=== PATIENT | female | born 1995 | race African-American/Black ===

== ENCOUNTER 2018-11-30 22:47 | Emergency (ER) | payer OTHER ==
[~2018-11-30] VITALS: Ht 160 cm; Wt 54.5 kg
[2018-11-30 23:55] LABS: BASO % 0.3 % (0.0-1.0); EOS # 0.1 10^3/uL (0.0-0.50); EOS % 2.1 % (0.0-3.0); HEMATOCRIT 35.4 % (36.0-47.0); HEMOGLOBIN 11.2 g/dl (12.0-15.5); LYMPH # 2.4 10^3/uL (1.5-6.5); LYMPH % 37.6 % (24.0-44.0); MEAN CORPUSCULAR HEMOGLOBIN 24.3 pg (27.0-33.0); MEAN CORPUSCULAR HGB CONC 31.6 g/dl (32.0-36.5); MEAN CORPUSCULAR VOLUME 76.8 fl (80.0-96.0); MONO # 0.5 10^3/uL (0.0-0.8); MONO % 8.1 % (0.0-5.0); NEUTROPHILS # 3.2 10^3/uL (1.8-7.7); NEUTROPHILS % 51.6 % (36.0-66.0); PLATELET COUNT, AUTOMATED 301 10^3/uL (150-450); RED BLOOD COUNT 4.61 10^6/uL (4.00-5.40); WHITE BLOOD COUNT 6.3 10^3/uL (4.0-10.0)
[2018-12-01] MEDS ORDERED: LIDOCAINE VISCOUS 2% SOLN 15ML UDC SS ONE
[2018-12-01 00:26] LABS: FREE T4 1.13 NG/DL (0.76-1.46)
[2018-12-01 00:49] LABS: MONO REFLEX EBV COMP NEGATIVE (NEGATIVE)
[2018-12-01] MEDS ORDERED: LIDO1SOL8 PO (01:03)
[2018-12-01 01:07] VITALS: BP 116/70
[2018-12-05 00:06] LABS: EBV VIRAL CAPSID AG IgG >600.0 U/mL (0.0-17.9); EBV VIRAL CAPSID AG IgM <36.0 U/mL (0.0-35.9)
== END 2018-12-01 01:09 | disposition home or self-care (01) ==
LOC: M ED 22:47
DX: J02.9 Acute pharyngitis, unspecified (principal); R51 Headache